=== PATIENT | male | born 1985 | race Caucasian/White ===

== ENCOUNTER 2017-02-03 08:57 | Inpatient (IN) | payer SELFPAY ==
[~2017-02-03] VITALS: Ht 162.6 cm; Wt 51.5 kg
[2017-02-03 09:24] LABS: DAU SCREEN DISCLAIMER
[2017-02-03 09:57] LABS: BLOOD UREA NITROGEN 12 mg/dL (7-18)
[2017-02-03 10:41] LABS: ACETAMINOPHEN < 2 mcg/mL (10-30)
[2017-02-03] MEDS: FLUCONAZOLE 200 MG TABLET PO SCH (12:16)
[2017-02-03 20:41] VITALS: BP 112/74
[2017-02-04 00:39] VITALS: BP 114/70
[2017-02-04 09:15] VITALS: BP 106/68
[2017-02-04] MEDS: FLUCONAZOLE 200 MG TABLET PO SCH (09:27)
[2017-02-04 13:45] VITALS: BP 119/75
[2017-02-04 19:26] VITALS: BP 103/62
[2017-02-04] MEDS: TERBINAFINE CRM 1%, 15GM TP SCH (21:00)
[2017-02-05 02:14] VITALS: BP 124/74
[2017-02-05 08:55] VITALS: BP 131/81
[2017-02-05] MEDS: TERBINAFINE CRM 1%, 15GM TP SCH ×2 (09:00→20:16)
[2017-02-05] MEDS: FLUCONAZOLE 200 MG TABLET PO SCH (10:24)
[2017-02-05 13:40] VITALS: BP 135/77
[2017-02-05 17:05] VITALS: BP 121/78
[2017-02-05 19:25] VITALS: BP 124/88
[2017-02-06 08:18] VITALS: BP 109/60
[2017-02-06] MEDS: TERBINAFINE CRM 1%, 15GM TP SCH ×2 (08:42→20:19)
[2017-02-06] MEDS: FLUCONAZOLE 200 MG TABLET PO SCH (08:42)
[2017-02-06] MEDS ORDERED: TERB15CR19 TP (09:21)
[2017-02-06] MEDS: OLANZAPINE 2.5 MG TABLET PO SCH (14:22)
[2017-02-06 21:15] VITALS: BP 137/71
[2017-02-07] MEDS: OLANZAPINE 2.5 MG TABLET PO SCH (08:09)
[2017-02-07] MEDS: FLUCONAZOLE 200 MG TABLET PO SCH (08:09)
[2017-02-07 08:21] VITALS: BP 112/78
[2017-02-07] MEDS: TERBINAFINE CRM 1%, 15GM TP SCH (09:08)
== END 2017-02-07 11:01 | disposition home or self-care (01) | DRG 881 ==
LOC: ED 10:37 → EDIP 10:54 → INTOOBSV 10:54 → OBSVTOIN 10:54 → 3NE 20:00 → 3E 02-05 16:45
PROVIDERS: ADMIT Internal Medicine; ATTEND Internal Medicine
DX: F32.9 Major depressive disorder, single episode, unspecified (principal); R45.851 Suicidal ideations; B35.3 Tinea pedis; Z59.0 Homelessness; F12.90 Cannabis use, unspecified, uncomplicated; F15.90 Other stimulant use, unspecified, uncomplicated
CPT/HCPCS: 36415; 80048; 80307; 80329; 82040; 85025; G0378; G0480

== ENCOUNTER 2017-07-26 07:52 | Emergency (ER) | payer SELFPAY ==
[~2017-07-26] VITALS: Ht 170.2 cm; Wt 59.0 kg
[~2017-07-26 07:52] MED LIST: TERB15CR19 TP
[2017-07-26 08:45] LABS: BLOOD UREA NITROGEN 10 mg/dL (7-18)
[2017-07-26 09:02] LABS: HEMATOCRIT 46.7 % (39.2-51.8); HEMOGLOBIN 15.8 g/dL (13.7-18.0); WHITE BLOOD COUNT 6.1 x10^3/uL (3.4-10)
[2017-07-26 10:14] VITALS: BP 106/49
== END 2017-07-26 10:16 | disposition home or self-care (01) ==
LOC: ED 08:53
DX: R55 Syncope and collapse (principal)
CPT/HCPCS: 36415; 80048; 82040; 85025; 93005; 99285

== ENCOUNTER 2017-11-05 02:14 | Emergency (ER) | payer SELFPAY ==
[~2017-11-05] VITALS: Ht 167.6 cm; Wt 54.5 kg
[2017-11-05 03:14] LABS: BASOPHILS # (AUTO) 0.02 x10^3/uL (0-0.1); BASOPHILS % (AUTO) 0 % (0-1); EOSINOPHILS # (AUTO) 0.07 x10^3/uL (0-0.4); EOSINOPHILS % (AUTO) 1 % (1-7); LYMPHOCYTES # (AUTO) 1.69 x10^3/uL (1-3.4); LYMPHOCYTES % (AUTO) 26 % (22-44); MD NO; MEAN CORPUSCULAR HEMOGLOBIN 31.1 pg (27.5-34.5); MEAN CORPUSCULAR HGB CONC 33.5 g/dL (33.2-36.2); MEAN CORPUSCULAR VOLUME 92.6 fL (81-97); MEAN PLATELET VOLUME 8.9 fL (7.4-10.4); MONOCYTES # (AUTO) 0.49 x10^3/uL (0.2-0.8); MONOCYTES % (AUTO) 7 % (2-9); NEUTROPHILS # (AUTO) 4.27 x10^3/uL (1.8-6.8); NEUTROPHILS % (AUTO) 65 % (42-75); PLATELET COUNT 216 x10^3/uL (130-400); RED BLOOD COUNT 4.72 x10^6/uL (4.38-5.82); RED CELL DISTRIBUTION WIDTH 13.9 % (9.4-14.8)
[2017-11-05 03:26] LABS: ALANINE AMINOTRANSFERASE 20 U/L (12-78); ALBUMIN 3.7 g/dL (3.4-5.0); ANION GAP 7 mmol/L (5-15); CALCIUM 8.9 mg/dL (8.5-10.1); CHLORIDE 108 mmol/L (98-107); SALICYLATE LEVEL 1.8 mg/dL (2.8-20.0)
[2017-11-05 03:28] LABS: ALKALINE PHOSPHATASE 60 U/L (45-117); BILIRUBIN,TOTAL 0.3 mg/dL (0.2-1.0); TOTAL PROTEIN 7.2 g/dL (6.4-8.2)
[2017-11-05 03:41] LABS: ACETAMINOPHEN < 2 mcg/mL (10-30)
[2017-11-05 07:42] VITALS: BP 142/78
== END 2017-11-05 07:55 | disposition home or self-care (01) ==
LOC: ED 07:53
DX: F32.0 Major depressive disorder, single episode, mild (principal); Z79.899 Other long term (current) drug therapy
CPT/HCPCS: 36415; 80053; 80307; 80329; 85025; 99284; G0480

== ENCOUNTER 2017-11-26 14:41 | Observation (INO) | payer OTHER ==
[~2017-11-26] VITALS: Ht 165.1 cm; Wt 50.0 kg
[2017-11-26] MEDS ORDERED: ANXIETY PO (15:41)
[2017-11-26] MEDS ORDERED: DEPRESSION PO (15:41)
[2017-11-26 15:45] LABS: BASOPHILS # (AUTO) 0.02 x10^3/uL (0-0.1); BASOPHILS % (AUTO) 0 % (0-1); EOSINOPHILS # (AUTO) 0.09 x10^3/uL (0-0.4); EOSINOPHILS % (AUTO) 1 % (1-7); LYMPHOCYTES # (AUTO) 2.11 x10^3/uL (1-3.4); LYMPHOCYTES % (AUTO) 34 % (22-44); MD NO; MEAN CORPUSCULAR HEMOGLOBIN 30.9 pg (27.5-34.5); MEAN CORPUSCULAR HGB CONC 33.4 g/dL (33.2-36.2); MEAN CORPUSCULAR VOLUME 92.5 fL (81-97); MEAN PLATELET VOLUME 9.5 fL (7.4-10.4); MONOCYTES # (AUTO) 0.59 x10^3/uL (0.2-0.8); MONOCYTES % (AUTO) 9 % (2-9); NEUTROPHILS # (AUTO) 3.45 x10^3/uL (1.8-6.8); NEUTROPHILS % (AUTO) 55 % (42-75); PLATELET COUNT 206 x10^3/uL (130-400); RED BLOOD COUNT 4.96 x10^6/uL (4.38-5.82); RED CELL DISTRIBUTION WIDTH 13.9 % (9.4-14.8)
[2017-11-26 15:55] LABS: AMPHETAMINE SCREEN, URINE Positive (Negative); BARBITURATE SCREEN, URINE Negative (Negative); BENZODIAZEPINE SCREEN, URINE Negative (Negative); CANNABINOID SCREEN, URINE Positive (Negative); COCAINE SCREEN, URINE Negative (Negative); METHADONE SCREEN, URINE Negative (Negative)
[2017-11-26 15:56] LABS: ANION GAP 6 mmol/L (5-15); CALCIUM 8.9 mg/dL (8.5-10.1); CHLORIDE 107 mmol/L (98-107)
[2017-11-26 16:03] LABS: OPIATE SCREEN, URINE Negative (Negative)
[2017-11-26 16:06] LABS: ALANINE AMINOTRANSFERASE 28 U/L (12-78); ALKALINE PHOSPHATASE 71 U/L (45-117); BILIRUBIN,TOTAL 0.4 mg/dL (0.2-1.0); CREATININE 0.85 mg/dL (0.7-1.3); TOTAL PROTEIN 7.6 g/dL (6.4-8.2)
[2017-11-26 16:07] LABS: ACETAMINOPHEN < 2 mcg/mL (10-30); SALICYLATE LEVEL < 1.7 mg/dL (2.8-20.0)
[2017-11-26] MEDS ORDERED: OLANZAPINE 5 MG TABLET PO ONE (17:30)
[2017-11-26] MEDS ORDERED: OLANZAPINE 5 MG TABLET ONE (17:40)
[2017-11-26] MEDS ORDERED: ACETAMINOPHEN 325 MG TABLET PO PRN (21:30)
[2017-11-26] MEDS ORDERED: POLYETHYLENE GLYCOL 17 GM PACKET PO PRN (21:30)
[2017-11-26] MEDS: OLANZAPINE 5 MG TABLET PO SCH (22:30)
[2017-11-26 22:41] VITALS: BP 108/72
[2017-11-27 08:02] VITALS: BP 108/69
[2017-11-27 19:33] VITALS: BP 149/90
[2017-11-27] MEDS: OLANZAPINE 5 MG TABLET PO SCH (20:36)
[2017-11-28 07:48] VITALS: BP 103/67
[2017-11-28 19:35] VITALS: BP 103/70
[2017-11-28] MEDS: OLANZAPINE 5 MG TABLET PO SCH (20:58)
[2017-11-29 08:00] VITALS: BP 119/80
[2017-11-29 20:31] VITALS: BP 117/84
[2017-11-29] MEDS: OLANZAPINE 5 MG TABLET PO SCH (20:52)
[2017-11-30 07:30] VITALS: BP 124/75
[2017-11-30 19:40] VITALS: BP 108/77
[2017-11-30] MEDS: LORazepam 1MG TABLET PO PRN (20:36)
[2017-11-30] MEDS: OLANZAPINE 5 MG TABLET PO SCH (20:36)
[2017-12-01 07:30] VITALS: BP_SYST 115; BP_SYST 131; BP_DIAS 81; BP_DIAS 82
[2017-12-01] MEDS: LORazepam 1MG TABLET PO PRN ×2 (16:34→21:43)
[2017-12-01 20:00] VITALS: BP 114/71
[2017-12-01] MEDS: OLANZAPINE 5 MG TABLET PO SCH (21:43)
[2017-12-02] MEDS ORDERED: ZIPRASIDONE 20 MG INJ IM ONE
[2017-12-02 08:00] VITALS: BP 115/78
[2017-12-02] MEDS: OLANZAPINE 5 MG TABLET PO SCH (20:38)
[2017-12-02 20:46] VITALS: BP 121/79
[2017-12-03 07:24] VITALS: BP 118/79
== END 2017-12-03 17:31 | disposition home or self-care (01) ==
LOC: ED 19:02 → EDIP 20:53 → 3E 22:34
PROVIDERS: ADMIT Hospitalist; ATTEND Hospitalist
DX: R45.851 Suicidal ideations (principal); F17.210 Nicotine dependence, cigarettes, uncomplicated; Z59.0 Homelessness; F19.10 Other psychoactive substance abuse, uncomplicated
CPT/HCPCS: 36415; 80053; 80307; 80329; 85025; 96372; 99285; G0378; J3486; G0480

== ENCOUNTER 2018-01-16 18:12 | Emergency (ER) | payer MEDICAID, OTHER ==
[~2018-01-16] VITALS: Ht 167.6 cm; Wt 58.7 kg
[~2018-01-16 18:12] MED LIST changes: +ANXIETY PO; +DEPRESSION PO
[2018-01-16 18:20] VITALS: BP 147/91
== END 2018-01-16 18:36 | disposition home or self-care (01) ==
LOC: ED 18:20
DX: H66.001 Acute suppurative otitis media without spontaneous rupture of ear drum, right ear (principal)
CPT/HCPCS: 99283

== ENCOUNTER 2018-01-29 13:21 | Emergency (ER) | payer MEDICAID ==
[~2018-01-29] VITALS: Ht 167.6 cm; Wt 59.2 kg
[2018-01-29 13:23] VITALS: BP 126/80
== END 2018-01-29 13:50 | disposition home or self-care (01) ==
LOC: ED 13:30
DX: H66.001 Acute suppurative otitis media without spontaneous rupture of ear drum, right ear (principal)
CPT/HCPCS: 99283

== ENCOUNTER 2018-02-06 16:25 | Observation (INO) | payer MEDICAID ==
[~2018-02-06] VITALS: Ht 165.1 cm; Wt 59.6 kg
[2018-02-06] MEDS ORDERED: LORazepam 1MG TABLET PO ONE (17:00)
[2018-02-06] MEDS ORDERED: ZIPRASIDONE 20 MG INJ IM ONE ×2 (17:00→17:22)
[2018-02-06] MEDS ORDERED: LORazepam 1MG TABLET ONE ×2 (17:22→17:27)
[2018-02-06 17:31] LABS: AMPHETAMINE SCREEN, URINE Negative (Negative); BARBITURATE SCREEN, URINE Negative (Negative); BENZODIAZEPINE SCREEN, URINE Negative (Negative); CANNABINOID SCREEN, URINE Positive (Negative); COCAINE SCREEN, URINE Negative (Negative); METHADONE SCREEN, URINE Negative (Negative); OPIATE SCREEN, URINE Negative (Negative)
[2018-02-06 17:39] LABS: BASOPHILS # (AUTO) 0.01 x10^3/uL (0-0.1); BASOPHILS % (AUTO) 0 % (0-1); EOSINOPHILS % (AUTO) 3 % (1-7); LYMPHOCYTES # (AUTO) 2.08 x10^3/uL (1-3.4); LYMPHOCYTES % (AUTO) 29 % (22-44); MD NO; MEAN CORPUSCULAR HEMOGLOBIN 31.9 pg (27.5-34.5); MEAN CORPUSCULAR HGB CONC 34.2 g/dL (33.2-36.2); MEAN CORPUSCULAR VOLUME 93.3 fL (81-97); MEAN PLATELET VOLUME 9.5 fL (7.4-10.4); MONOCYTES # (AUTO) 0.62 x10^3/uL (0.2-0.8); MONOCYTES % (AUTO) 9 % (2-9); NEUTROPHILS # (AUTO) 4.39 x10^3/uL (1.8-6.8); NEUTROPHILS % (AUTO) 60 % (42-75); PLATELET COUNT 203 x10^3/uL (130-400); RED BLOOD COUNT 4.74 x10^6/uL (4.38-5.82); RED CELL DISTRIBUTION WIDTH 14.2 % (9.4-14.8)
[2018-02-06 17:50] LABS: ANION GAP 5 mmol/L (5-15); CALCIUM 8.7 mg/dL (8.5-10.1); CHLORIDE 107 mmol/L (98-107); CREATININE 1.02 mg/dL (0.7-1.3); SALICYLATE LEVEL 1.8 mg/dL (2.8-20.0)
[2018-02-06 17:51] LABS: ACETAMINOPHEN < 2 mcg/mL (10-30)
[2018-02-06] MEDS ORDERED: POLYETHYLENE GLYCOL 17 GM PACKET PO PRN (19:30)
[2018-02-06] MEDS ORDERED: DOCUSATE 100 MG CAPSULE PO PRN (19:30)
[2018-02-06] MEDS ORDERED: BISACODYL 10 MG SUPP PR PRN (19:30)
[2018-02-06] MEDS ORDERED: ONDANSETRON ODT 4 MG PO PRN (19:30)
[2018-02-06] MEDS: LORazepam 1MG TABLET PO PRN (21:46)
[2018-02-06 22:20] VITALS: BP 116/65
[2018-02-07] MEDS: ACETAMINOPHEN 325 MG TABLET PO PRN ×4 (06:33→22:30)
[2018-02-07] MEDS: AMOXICILLIN/CLAV 500-125MG TABLET PO SCH ×2 (12:00→20:17)
[2018-02-07 19:48] VITALS: BP 129/88
[2018-02-07] MEDS: LORazepam 1MG TABLET PO PRN (20:23)
[2018-02-08] MEDS ORDERED: IBUPROFEN 200 MG TABLET PO ONE (02:30)
== END 2018-02-08 02:50 ==
LOC: ED 16:59 → EDIP 19:06 → INTOOBSV 19:06 → 2N 22:17
PROVIDERS: ADMIT Internal Medicine; ATTEND Internal Medicine
DX: R45.851 Suicidal ideations (principal); F32.9 Major depressive disorder, single episode, unspecified; F17.200 Nicotine dependence, unspecified, uncomplicated; F29 Unspecified psychosis not due to a substance or known physiological condition; Z59.0 Homelessness; Z83.3 Family history of diabetes mellitus
CPT/HCPCS: 36415; 80048; 80307; 80329; 82040; 85025; 96372; 99285; G0378; J3486; G0480

== ENCOUNTER 2018-08-27 13:52 | Emergency (ER) | payer MEDICAID ==
[~2018-08-27] VITALS: Ht 167.6 cm; Wt 61.3 kg
[2018-08-27 14:05] VITALS: BP 120/76
[2018-08-27 14:35] LABS: BASOPHILS # (AUTO) 0.04 x10^3/uL (0-0.1); BASOPHILS % (AUTO) 1 % (0-1); EOSINOPHILS % (AUTO) 2 % (1-7); LYMPHOCYTES # (AUTO) 1.87 x10^3/uL (1-3.4); LYMPHOCYTES % (AUTO) 32 % (22-44); MD NO; MEAN CORPUSCULAR HEMOGLOBIN 31.5 pg (27.5-34.5); MEAN CORPUSCULAR HGB CONC 33.7 g/dL (33.2-36.2); MEAN CORPUSCULAR VOLUME 93.4 fL (81-97); MEAN PLATELET VOLUME 9.7 fL (7.4-10.4); MONOCYTES # (AUTO) 0.55 x10^3/uL (0.2-0.8); MONOCYTES % (AUTO) 9 % (2-9); NEUTROPHILS # (AUTO) 3.31 x10^3/uL (1.8-6.8); NEUTROPHILS % (AUTO) 56 % (42-75); PLATELET COUNT 210 x10^3/uL (130-400); RED BLOOD COUNT 4.94 x10^6/uL (4.38-5.82); RED CELL DISTRIBUTION WIDTH 14.4 % (9.4-14.8)
--- NOTE | 2018-08-27 14:35 | NUR ---
Patient safe in [facility], shutters lowered, sitter outside room with line of sight, socks provided, changed into gown only, all possessions bagged and labeled.
[2018-08-27 14:44] LABS: ALANINE AMINOTRANSFERASE 30 U/L (12-78); ALBUMIN 4.2 g/dL (3.4-5.0); ANION GAP 2 mmol/L (5-15); CALCIUM 9.3 mg/dL (8.5-10.1); CHLORIDE 107 mmol/L (98-107); CREATININE 0.89 mg/dL (0.7-1.3)
[2018-08-27 14:48] LABS: ALKALINE PHOSPHATASE 81 U/L (45-117); BILIRUBIN,TOTAL 0.5 mg/dL (0.2-1.0); TOTAL PROTEIN 7.6 g/dL (6.4-8.2)
--- NOTE | 2018-08-27 14:55 | NUR ---
POC discussed with MD Walters and COY Felix, patient to be discharged after he has eaten.
[2018-08-27 15:43] LABS: ACETAMINOPHEN < 2 mcg/mL (10-30); SALICYLATE LEVEL < 1.7 mg/dL (2.8-20.0)
== END 2018-08-27 16:18 | disposition home or self-care (01) ==
LOC: ED 14:47
DX: F31.9 Bipolar disorder, unspecified (principal); M54.2 Cervicalgia; R51 Headache; F41.1 Generalized anxiety disorder
CPT/HCPCS: 36415; 80053; 80307; 80329; 85025; 99284; G0480

== ENCOUNTER 2018-09-04 12:44 | Emergency (ER) | payer MEDICAID ==
[~2018-09-04] VITALS: Ht 167.6 cm; Wt 63.5 kg
[2018-09-04] MEDS ORDERED: SODIUM CHLORIDE FLUSH 10ML SYR IVF ONE (13:30)
[2018-09-04 13:50] LABS: BASOPHILS # (AUTO) 0.02 x10^3/uL (0-0.1); BASOPHILS % (AUTO) 0 % (0-1); EOSINOPHILS # (AUTO) 0.08 x10^3/uL (0-0.4); EOSINOPHILS % (AUTO) 1 % (1-7); LYMPHOCYTES # (AUTO) 0.98 x10^3/uL (1-3.4); LYMPHOCYTES % (AUTO) 10 % (22-44); MD NO; MEAN CORPUSCULAR HGB CONC 34.1 g/dL (33.2-36.2); MEAN CORPUSCULAR VOLUME 93.8 fL (81-97); MEAN PLATELET VOLUME 9.7 fL (7.4-10.4); MONOCYTES # (AUTO) 0.64 x10^3/uL (0.2-0.8); MONOCYTES % (AUTO) 7 % (2-9); NEUTROPHILS # (AUTO) 7.75 x10^3/uL (1.8-6.8); NEUTROPHILS % (AUTO) 82 % (42-75); PLATELET COUNT 169 x10^3/uL (130-400); RED BLOOD COUNT 4.83 x10^6/uL (4.38-5.82); RED CELL DISTRIBUTION WIDTH 14.3 % (9.4-14.8)
--- NOTE | 2018-09-04 13:53 | NUR ---
ERP EXAM WITH ORDERS FOR IV, CT W/CONTRAST. PT ACUITY CHANGED TO 3. IV PLACED, LABS DRAWN. WARM BLANKET PROVIDED, CALL LIGHT WITHIN REACH. VSS/UPDATED IN COMPUTER.
--- NOTE | 2018-09-04 13:55 | NUR ---
PT TO CT.
[2018-09-04 14:03] LABS: ALANINE AMINOTRANSFERASE 31 U/L (12-78); ALBUMIN 3.5 g/dL (3.4-5.0); ANION GAP 6 mmol/L (5-15); CALCIUM 8.8 mg/dL (8.5-10.1); CHLORIDE 107 mmol/L (98-107); CREATININE 0.93 mg/dL (0.7-1.3)
[2018-09-04 14:06] LABS: ALKALINE PHOSPHATASE 74 U/L (45-117); BILIRUBIN,TOTAL 0.4 mg/dL (0.2-1.0); TOTAL PROTEIN 6.7 g/dL (6.4-8.2)
[2018-09-04] MEDS ORDERED: OMNIPAQUE 350 MG/ML, 100ML BOTTLE ONE (14:13)
[2018-09-04 15:29] VITALS: BP 108/67
== END 2018-09-04 15:31 | disposition home or self-care (01) ==
LOC: ED 13:00
DX: S00.03XA Contusion of scalp, initial encounter (principal); S00.83XA Contusion of other part of head, initial encounter; S30.1XXA Contusion of abdominal wall, initial encounter; R51 Headache; F31.9 Bipolar disorder, unspecified; F41.9 Anxiety disorder, unspecified; Y04.0XXA Assault by unarmed brawl or fight, initial encounter; Y93.89 Activity, other specified; Y92.009 Unspecified place in unspecified non-institutional (private) residence as the place of occurrence of the external cause; Y99.8 Other external cause status
CPT/HCPCS: 36415; 70450; 70486; 74177; 80053; 85025; 99284; Q9967

== ENCOUNTER 2018-09-08 00:51 | Emergency (ER) | payer MEDICAID ==
[~2018-09-08] VITALS: Ht 167.6 cm; Wt 63.5 kg
[2018-09-08 00:56] VITALS: BP 118/89
--- NOTE | 2018-09-08 01:28 | NUR ---
KICKED IN CHEST 2 DAYS AGO, SEEN HERE RECENTLY FOR SAME
[2018-09-08] MEDS ORDERED: KETOROLAC 30 MG/1 ML IM ONE (01:30)
[2018-09-08] MEDS ORDERED: KETOROLAC 30 MG/1 ML ONE (01:32)
[2018-09-08 01:58] LABS: BASOPHILS # (AUTO) 0.04 x10^3/uL (0-0.1); BASOPHILS % (AUTO) 1 % (0-1); EOSINOPHILS # (AUTO) 0.15 x10^3/uL (0-0.4); EOSINOPHILS % (AUTO) 3 % (1-7); LYMPHOCYTES % (AUTO) 42 % (22-44); MD NO; MEAN CORPUSCULAR HEMOGLOBIN 31.7 pg (27.5-34.5); MEAN CORPUSCULAR HGB CONC 33.8 g/dL (33.2-36.2); MEAN CORPUSCULAR VOLUME 93.8 fL (81-97); MEAN PLATELET VOLUME 9.3 fL (7.4-10.4); MONOCYTES # (AUTO) 0.63 x10^3/uL (0.2-0.8); MONOCYTES % (AUTO) 11 % (2-9); NEUTROPHILS # (AUTO) 2.68 x10^3/uL (1.8-6.8); NEUTROPHILS % (AUTO) 45 % (42-75); PLATELET COUNT 212 x10^3/uL (130-400); RED BLOOD COUNT 4.81 x10^6/uL (4.38-5.82); RED CELL DISTRIBUTION WIDTH 14.1 % (9.4-14.8)
[2018-09-08 02:07] LABS: ALBUMIN 3.6 g/dL (3.4-5.0); ANION GAP 7 mmol/L (5-15); CALCIUM 8.9 mg/dL (8.5-10.1); CHLORIDE 110 mmol/L (98-107); CREATININE 0.76 mg/dL (0.7-1.3)
[2018-09-08 02:10] LABS: TROPONIN I < 0.015 ng/mL (0.000-0.045)
== END 2018-09-08 02:50 | disposition home or self-care (01) ==
LOC: ED 01:33
DX: S20.212A Contusion of left front wall of thorax, initial encounter (principal); F31.9 Bipolar disorder, unspecified; Y04.8XXA Assault by other bodily force, initial encounter; Y93.89 Activity, other specified; Y92.410 Unspecified street and highway as the place of occurrence of the external cause; Y99.8 Other external cause status
CPT/HCPCS: 36415; 71046; 80048; 82040; 84484; 85025; 93005; 96372; 99284; J1885

== ENCOUNTER 2019-01-02 15:18 | Emergency (ER) | payer MEDICAID ==
[~2019-01-02] VITALS: Ht 172.7 cm; Wt 58.6 kg
--- NOTE | 2019-01-02 15:47 | NUR ---
BIB [facility], pt states he wanted to jump into a river and freeze to . PT is scratching and does not appear to have any bug bites on skin or lice infestations. ORTEGA RODGERS notified. Will medicate per emar.
[2019-01-02] MEDS ORDERED: hydrOXyzine 50MG TABLET ONE (15:50)
--- NOTE | 2019-01-02 16:10 | NUR ---
Pt able to provide urine sample. Specimen collected, labeled at bedside, sent to lab. Pt provided meal tray with SI precautions. Room remains secured, sitter within eyesight.
[2019-01-02 16:12] LABS: BASOPHILS # (AUTO) 0.02 x10^3/uL (0-0.1); BASOPHILS % (AUTO) 0 % (0-1); EOSINOPHILS # (AUTO) 0.07 x10^3/uL (0-0.4); EOSINOPHILS % (AUTO) 1 % (1-7); LYMPHOCYTES % (AUTO) 33 % (22-44); MD NO; MEAN CORPUSCULAR HEMOGLOBIN 31.6 pg (27.5-34.5); MEAN CORPUSCULAR HGB CONC 33.2 g/dL (33.2-36.2); MEAN CORPUSCULAR VOLUME 95.3 fL (81-97); MEAN PLATELET VOLUME 9.6 fL (7.4-10.4); MONOCYTES % (AUTO) 7 % (2-9); NEUTROPHILS # (AUTO) 3.11 x10^3/uL (1.8-6.8); NEUTROPHILS % (AUTO) 58 % (42-75); PLATELET COUNT 190 x10^3/uL (130-400); RED BLOOD COUNT 4.95 x10^6/uL (4.38-5.82); RED CELL DISTRIBUTION WIDTH 13.9 % (9.4-14.8)
[2019-01-02 16:14] LABS: ALBUMIN 4.2 g/dL (3.4-5.0); ANION GAP 5 mmol/L (5-15); CALCIUM 9.3 mg/dL (8.5-10.1); CHLORIDE 109 mmol/L (98-107); SALICYLATE LEVEL 2.4 mg/dL (2.8-20.0)
[2019-01-02 16:19] LABS: ACETAMINOPHEN < 2 mcg/mL (10-30)
[2019-01-02 16:31] LABS: AMPHETAMINE SCREEN, URINE Positive (Negative); BARBITURATE SCREEN, URINE Negative (Negative); BENZODIAZEPINE SCREEN, URINE Negative (Negative); CANNABINOID SCREEN, URINE Positive (Negative); COCAINE SCREEN, URINE Negative (Negative); METHADONE SCREEN, URINE Negative (Negative); OPIATE SCREEN, URINE Negative (Negative)
--- NOTE | 2019-01-02 16:45 | NUR ---
SOC CALLED FOR CONSULT
[2019-01-02 16:46] VITALS: BP 111/71
--- NOTE | 2019-01-02 17:13 | NUR ---
pt sleeping on gurney. no acute distress noted. sitter at bedside.
--- NOTE | 2019-01-02 17:29 | NUR ---
Report given over telephone to SOC doctor. Pt to be evaluated by SOC now.
--- NOTE | 2019-01-02 17:45 | NUR ---
pt consulting with via tele psych
--- NOTE | 2019-01-02 18:58 | NUR ---
Report from Skylar Smart rn. This rn to assume care of pt. Roller doors in place. Sitter in hallway. Resting comfortably on gurney. Nadn. Ordered hospital bed.
--- NOTE | 2019-01-02 19:06 | NUR ---
PACKET FAXED TO [facility] [place] AND [facility]
--- NOTE | 2019-01-02 19:31 | NUR ---
Given dinner at this time.
--- NOTE | 2019-01-02 19:41 | NUR ---
eufemia from [facility] called to accept pt with dr talbert.
--- NOTE | 2019-01-02 20:29 | NUR ---
Yoel garcia updated and given report for pt.
== END 2019-01-02 22:07 ==
LOC: ED 16:20
DX: R45.851 Suicidal ideations (principal); F41.1 Generalized anxiety disorder; F31.9 Bipolar disorder, unspecified; Z72.9 Problem related to lifestyle, unspecified
CPT/HCPCS: 36415; 80048; 80307; 82040; 85025; 99285; Q0177

== ENCOUNTER 2019-06-16 07:05 | Emergency (ER) | payer MEDICAID ==
[~2019-06-16] VITALS: Ht 160 cm; Wt 62.0 kg
--- NOTE | 2019-06-16 07:13 | NUR ---
BIB [facility], PT C/O N/V/D BEGINNING THIS AM, PT STATES HE THINKS HE ATES SOMETHING BAD LAST NIGHT PT DENIES CP, SOB ABD DISCOMFORT REPORTED RUQ. ERMD IN TO EVAL PT, PT TO CONT PULSE OX, BP MONITORING
[2019-06-16] MEDS ORDERED: LOPERAMIDE 2 MG CAPSULE ONE ×2 (07:16→07:18)
[2019-06-16] MEDS ORDERED: LOPERAMIDE 2 MG CAPSULE PO ONE (07:30)
[2019-06-16 07:40] LABS: BASOPHILS # (AUTO) 0.02 x10^3/uL (0-0.1); BASOPHILS % (AUTO) 0 % (0-1); EOSINOPHILS # (AUTO) 0.05 x10^3/uL (0-0.4); EOSINOPHILS % (AUTO) 1 % (1-7); LYMPHOCYTES # (AUTO) 1.05 x10^3/uL (1-3.4); LYMPHOCYTES % (AUTO) 13 % (22-44); MD NO; MEAN CORPUSCULAR HEMOGLOBIN 31.9 pg (27.5-34.5); MEAN CORPUSCULAR HGB CONC 33.5 g/dL (33.2-36.2); MEAN CORPUSCULAR VOLUME 95.2 fL (81-97); MEAN PLATELET VOLUME 9.6 fL (7.4-10.4); MONOCYTES # (AUTO) 0.41 x10^3/uL (0.2-0.8); MONOCYTES % (AUTO) 5 % (2-9); NEUTROPHILS # (AUTO) 6.84 x10^3/uL (1.8-6.8); NEUTROPHILS % (AUTO) 82 % (42-75); PLATELET COUNT 203 x10^3/uL (130-400); RED BLOOD COUNT 5.05 x10^6/uL (4.38-5.82); RED CELL DISTRIBUTION WIDTH 13.9 % (9.4-14.8)
[2019-06-16 07:49] LABS: ALANINE AMINOTRANSFERASE 19 U/L (12-78); ANION GAP 4 mmol/L (5-15); CALCIUM 9.2 mg/dL (8.5-10.1); CHLORIDE 108 mmol/L (98-107); CREATININE 1.01 mg/dL (0.7-1.3)
[2019-06-16 07:51] LABS: ALKALINE PHOSPHATASE 76 U/L (45-117); BILIRUBIN,TOTAL 0.2 mg/dL (0.2-1.0); TOTAL PROTEIN 7.5 g/dL (6.4-8.2)
[2019-06-16 08:01] VITALS: BP 134/83
--- NOTE | 2019-06-16 08:01 | NUR ---
PT RESTING ON GURNEY, MEDICATED PER OCT, NAD NOTED. NO NEEDS AT THIS TIME
--- NOTE | 2019-06-16 08:51 | NUR ---
Patient/Caregiver given discharge instructions and they have confirmed that they understand the instructions. Patient ambulatory with steady gait.
== END 2019-06-16 08:52 | disposition home or self-care (01) ==
LOC: ED 07:47
DX: K52.9 Noninfective gastroenteritis and colitis, unspecified (principal); F17.200 Nicotine dependence, unspecified, uncomplicated
CPT/HCPCS: 36415; 80053; 85025; 99283

== ENCOUNTER 2020-03-12 11:02 | Emergency (ER) | payer MEDICAID ==
[~2020-03-12] VITALS: Ht 167.6 cm; Wt 72.0 kg
[2020-03-12] MEDS ORDERED: IBUPROFEN 200 MG TABLET PO ONE (11:30)
--- NOTE | 2020-03-12 11:32 | NUR ---
pt back from x ray at this time.
[2020-03-12] MEDS ORDERED: IBUPROFEN 600 MG TABLET ONE (11:35)
--- NOTE | 2020-03-12 11:38 | NUR ---
pt medicated at this time. call light in reach. no other wants or needs at this time.
[2020-03-12 11:57] VITALS: BP 127/80
== END 2020-03-12 12:35 | disposition home or self-care (01) ==
LOC: ED 12:18
DX: S30.0XXA Contusion of lower back and pelvis, initial encounter (principal); S30.1XXA Contusion of abdominal wall, initial encounter; M25.552 Pain in left hip; X58.XXXA Exposure to other specified factors, initial encounter; Y93.89 Activity, other specified; Y92.89 Other specified places as the place of occurrence of the external cause; Y99.8 Other external cause status
CPT/HCPCS: 72110; 99284

== ENCOUNTER 2021-01-05 18:16 | Emergency (ER) | payer MEDICAID ==
[~2021-01-05] VITALS: Ht 167.6 cm; Wt 70.0 kg
[2021-01-05 18:19] VITALS: BP 137/80
== END 2021-01-05 19:13 | disposition home or self-care (01) ==
LOC: ED 19:00
DX: F15.151 Other stimulant abuse with stimulant-induced psychotic disorder with hallucinations (principal); F15.159 Other stimulant abuse with stimulant-induced psychotic disorder, unspecified; F32.9 Major depressive disorder, single episode, unspecified; F41.1 Generalized anxiety disorder
CPT/HCPCS: 99283